=== PATIENT | female | born 1955 | race Caucasian/White ===

== ENCOUNTER → 2023-09-26 13:31 | Outpatient (CLI) | payer OTHER, SELFPAY ==
--- NOTE | ~2023-09-26 | MR_ITS ---
EXAMINATION: MR foot RT wo con, MR ankle RT wo con DATE: 09/26/2023 INDICATION: Right foot and ankle pain and swelling TECHNIQUE: 1. Magnetic resonance imaging (MRI) of the right ankle/hindfoot was performed without intravenous con trast. Sequences included sagittal, coronal, and axial PD-weighted FSE and PD-weighted FS FSE. 2. MRI of the right fore/mid foot was performed without intravenous contrast. Sequences included sagi ttal T1-weighted FSE, sagittal fluid sensitive FSE STIR, coronal PD-weighted FS FSE, coronal T1-weigh mckinley FSE, axial PD-weighted FS FSE, and axial PD-weighted FSE. COMPARISON: None. FINDINGS: Medial ankle ligaments: Deep deltoid ligament is normal. There is thickening of the superficial deltoid ligament without sign ificant surrounding edema consistent with scarring related to chronic sprain. There is a tear at the navicular side of the superomedial component of the spring ligament complex. The medial plantar obliq ue and infra plantar lateral components of the spring ligament complex remain normal. Lateral ankle ligaments: The anterior and posterior inferior tibiofibular, anterior and posterior talofibular as well as the c alcaneofibular ligaments are normal. Tendons: Mild Achilles tendinosis without tear with moderate-sized Achilles calcaneal enthesophyte and promine nt enthesopathic ossification in the distal Achilles tendon. The peroneus longus and brevis tendons a re normal with small amount of fluid along the tendon sheath consistent with mild tenosynovitis. The flexor digitorum longus and flexor hallucis longus tendons are normal. There is mild tibialis posteri or tenosynovitis with moderate tendinopathy and full-thickness tear occurring near the distal tibia t he medial malleolus. There is significant proximal retraction of the proximal tear margin however bot h the proximal distal tear margins are attenuated and relatively ragged limiting quantitative assessm ent of the degree of retraction which likely on the order of 3-4 cm. The anterior flexor tendons of t he foot and ankle are normal. Plantar fascia: Small plantar calcaneal spur with mild thickening of the central component of the plantar aponeurosis consistent with mild chronic enthesopathy. No associated marrow edema or significant soft tissue josey ma to suggest an acute plantar fasciitis. Midfoot ligaments: The Lisfranc ligament complex is normal. There is likely chronic degeneration the medial collateral l igament complex at the first metatarsophalangeal joint. Remaining collateral ligament complex at the metatarsophalangeal joints and at the interphalangeal joints are normal. Bones/other: Hallux valgus with severe osteoarthritis at the first metatarsophalangeal joint. Bone alignment is ot herwise unremarkable however given the tear of the superomedial spring ligament and tibialis posterio r tendon suspected there could be hallux valgus and hindfoot valgus with weightbearing. No fractures. There is additional mild to moderate osteoarthritis at several of the interphalangeal joints. Mild p olyarticular osteoarthritis abdomen the ankle and multiple joints in the mid and hindfoot. There is p rominent marrow edema along the proximal aspect of the cuboid without corresponding edema in the lata cent anterior calcaneus and which appears disproportionate to the mild osteoarthritis. There is subtl e small region of linear low signal underlying a portion of the articular cortex of the cuboid at the calcaneocuboid articulation which could represent a small nondisplaced subarticular fracture. No oth er lesions suspicious for fracture identified. There is marrow edema along the anterior margin of the lateral process of the talus which suggests possibility of hindfoot impingement which can be seen in the setting of a tibialis posterior insufficiency and hindfoot valgus. Fluid: Ganglion cyst at the dorsolateral hindfoot which appears to vivian
== END ==
DX: M76.821 Posterior tibial tendinitis, right leg (principal); M76.61 Achilles tendinitis, right leg; M77.51 Other enthesopathy of right foot and ankle; D75.89 Other specified diseases of blood and blood-forming organs
CPT/HCPCS: 73718; 73721